=== PATIENT | male | born 1950 | race Caucasian/White ===

== ENCOUNTER 2018-06-24 12:13 | Inpatient (IN) ==
[2018-06-24] MEDS ORDERED: TYLENOL PO PRN (13:16)
[2018-06-24] MEDS ORDERED: DESYREL PO PRN (13:16)
[2018-06-24] MEDS ORDERED: PATIENT'S OWN MED PO SCH (13:16)
[2018-06-24] MEDS ORDERED: PATIENT'S OWN MED IV SCH (13:16)
[2018-06-24] MEDS ORDERED: SOLU-MEDROL IV ONE (13:16)
[2018-06-24 14:13] LABS: BASO# 0.01 X1000 (0.0-0.2); BASO% 0.3 % (0.0-0.8); EOS# 0.06 X1000 (0.0-0.7); EOS% 1.9 % (0.0-10.0); HEMATOCRIT 42.8 % (42.0-52.0); HEMOGLOBIN 13.8 g/dL (14.0-18.0); IMM GRAN# 0.03 X1000 (0.0-0.04); IMM GRAN% 0.9 % (0.0-0.5); LYMPH# 0.59 X1000 (1.2-3.4); LYMPH% 18.3 % (20.5-51.1); MCH 29.6 PG (27-31); MCHC 32.2 g/dL (33-37); MCV 91.8 FL (81-99); MONO# 0.18 X1000 (0.11-0.59); MONO% 5.6 % (1.7-9.3); MPV 12.4 FL (7.4-10.4); NEUT# 2.35 X1000 (1.4-6.5); PLT 111 X1000 (130-400); RBC 4.66 XMIL (4.7-6.1); RDW 16.5 % (11.5-14.5); WBC 3.22 X1000 (4.8-10.8)
[2018-06-24 14:22] LABS: ALB/GLOB RATIO 1.2; ALBUMIN 3.6 g/dL (3.5-5.0); CALCIUM 9.2 mg/dL (8.8-10.2); CREATININE 1.8 mg/dL (0.7-1.2); POTASSIUM 3.8 mmol/L (3.5-5.1); TOTAL BILIRUBIN 0.52 mg/dL (0.20-1.00); TOTAL PROTEIN 6.6 g/dL (6.3-8.3)
[2018-06-24] MEDS: ZOSYN 3.375 GM in NS 50 ML IV SCH ×2 (14:54→22:10)
[2018-06-24 14:56] LABS: BANDS 8 % (0-1); EOS 1 % (1-10); LYMPHS 25 % (21-51); MONO 7 % (1-9); SEGS 59 % (42-75)
[2018-06-24] MEDS: DUONEB (A & A) INH SCH ×3 (15:59→23:50)
[2018-06-24 16:08] LABS: ALLEN TEST YES; BLOOD TYPE ARTERIAL; HCO3-(ACT) 26.3 mmoll (20.0-26.0); METHB 0.9 % (0.0-1.5); O2HB 92.5 % (95.0-99.0); PCO2(98.6) 36 mmHg (35-45); PO2(98.6) 65 mmHg (60-100); SAMPLE BLOOD; SAO2 95.1 % (95.0-100.0); THB 15.4 g/dL (11.5-17.4); pH(98.6) 7.46 (7.35-7.45)
[2018-06-24 16:16] LABS: MODALITY CANNULA
[2018-06-24] MEDS: DOXYCYCLINE 100 MG in NS 250 ML IV SCH (17:12)
--- NOTE | 2018-06-24 18:27 | Diag Imaging Result Doc PS360 ---
EXAM: CHEST-2 VIEWS HISTORY: shortness of breath TECHNIQUE: Chest two views COMPARISON: 02/27/2018 FINDINGS: The lungs are well expanded. The heart is not enlarged. The vessels are not distended. There are no infiltrates in the lower left lung. No pleural effusions. IMPRESSION: Left sided pneumonia. Electronically signed by Brent Goff 06/24/2018 6:25 PM
[2018-06-24] MEDS: HUMALOG SUBQ SCH (22:04)
[2018-06-24] MEDS: SOLU-MEDROL IV SCH (22:08)
[2018-06-24] MEDS: LOFIBRA PO SCH (22:08)
[2018-06-24] MEDS: CRESTOR PO SCH (22:08)
[2018-06-24] MEDS: COREG PO SCH (22:09)
[2018-06-24] MEDS: KLOR-CON PO SCH (22:09)
--- NOTE | 2018-06-25 03:17 | HISTORY AND PHYSICAL ---
PRIMARY CARE PHYSICIAN: Dr. Ike Lucia. CHIEF COMPLAINT: Shortness of breath. HISTORY OF PRESENT ILLNESS: A 67-year-old, white male with a complicated past medical history who presents for evaluation of above-mentioned symptoms. Current history of present illness began on Friday. At that time, the patient developed mild upper respiratory symptoms with nasal drainage. On Friday, he awoke feeling reasonably well and went for his weekly Velcade injection per Dr. Allred. After the Velcade injection, he developed a low-grade fever of 100.8. Cough and shortness of breath increased considerably over the course of the afternoon. The patient contacted the on-call oncologist. He was prescribed ciprofloxacin therapy. Yesterday, the patient states he had tremendous fatigue and was forced to stay in the bed a vast majority of the day. He noted increasing shortness of breath and cough productive of a purulent sputum. He was able to use his CPAP with improvement in his shortness of breath. This morning, his condition progressed further. He contacted my office and the patient was seen in the clinic. Upon arrival, the patient was noted to be ill-appearing with tachypnea. His oxygen saturation at rest was 90%. The patient will be admitted to the hospital for full evaluation and management of presumed pneumonia in the setting of an immunocompromised patient. Of note, the patient has had intermittent wheezing associated with his shortness of breath. He has had multiple sick contacts over the holidays. He is currently being treated with chemotherapeutic intervention for his multiple myeloma. He has developed a recent history of adrenal insufficiency associated with decreasing dexamethasone for his treatment of multiple myeloma. PAST MEDICAL HISTORY: 1. Abnormal electrocardiogram with RSR prime. 2. Abnormal skin examination with multiple actinic keratoses. 3. Chronic anemia. 4. Atrial fibrillation. 5. Benign prostatic hypertrophy. 6. Diabetes. 7. Reflux disease. 8. Hypertension. 9. Hypertriglyceridemia. 10. Hyperlipidemia. 11. Coronary artery disease. 12. Low HDL. 13. Multiple myeloma. 14. Obstructive sleep apnea. 15. Overweight. 16. Rheumatoid arthritis/Still's disease. CURRENT MEDICATIONS: 1. Amiodarone 200 mg as needed for palpitations. 2. Amlodipine 5 mg daily. 3. Aspirin 81 mg daily. 4. Carvedilol 12.5 mg twice daily. 5. Claritin 10 mg daily. 6. Crestor 40 mg at bedtime. 7. Dexamethasone 2 mg in the morning every other day. 8. Fenofibrate 160 mg at bedtime. 9. Lasix 40 mg daily. 10. Onglyza 5 mg daily. 11. Potassium chloride 10 mEq twice daily. 12. Revlimid 10 mg at bedtime. 13. Trazodone 50 mg 1 to 2 tablets at bedtime as needed. 14. Velcade weekly for 3 weeks, followed by 1 off week. ALLERGIES: The patient answered no known drug allergies. SOCIAL HISTORY: Patient previously smoked 1 pack per day for 10 years. He stopped cigarettes in 1978. He started oral tobacco in 1984 but stopped in 2008. He currently is tobacco free. He denies alcohol or illicit drug use. 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 He enjoys fishing. He exercises 3 times per week. FAMILY HISTORY: The patient's father passed at age 69 secondary to complications of ischemic heart disease and prostate cancer. The patient's mother passed at age 84 with complications of end-stage renal disease. She had a history of diabetes and coronary artery disease. REVIEW OF SYSTEMS: A 12 point review of systems was performed. Pertinent positives and negatives are noted in the history present illness. PHYSICAL EXAMINATION: VITAL SIGNS: Temperature 98.6 degrees, heart rate 42, respirations of 28, blood pressure is 145/60. GENERAL: Ill-appearing. Mild respiratory compromise with tachypnea. HEENT: Normocephalic, atraumatic. Pupils equal, round, and reactive to light. Extraocular muscles intact. Sclerae anicteric. [place] conjunctivae. Oral and nasopharynx clear without exudate. NECK: Supple. No lymphadenopathy. No thyromegaly. No bruits auscultated. CARDIOVASCULAR: Regular rate and rhythm. No significant murmurs, rubs, or gallops. PULMONARY: Crackles at the left base. Occasional wheeze. ABDOMEN: Soft, nontender, nondistended. Positive bowel sounds. EXTREMITIES: Moves all extremities well. No significant clubbing, cyanosis, or edema. NEUROLOGIC EXAMINATION: Cranial nerves 2 through 12 grossly intact. Motor and sensory grossly intact. PSYCHOLOGIC: Examination is appropriate. LABORATORY DATA: White blood cell count 3.22, hemoglobin 13.8, hematocrit 42.8, platelet count is 111,000. Sodium 136, potassium 3.8, chloride 96, bicarb 28, BUN 21, creatinine 1.8, glucose 140, calcium 9.2. Total bilirubin 0.52, total protein 6.6, albumin 3.6, alkaline phosphatase 30, AST 22, ALT 21. PH 7.46, pCO2 36, PO2 65 (on 2 L nasal cannula), bicarbonate 26.3. Chest x-ray is pending at the time of dictation. ASSESSMENT AND PLAN: A 67-year-old, white male with a complicated past medical history who presents for evaluation of progressive shortness of breath with a cough productive of a purulent sputum. The patient is tachypneic with left basilar crackles per examination. Oxygen saturation is borderline. At this point, working diagnosis is that of a pneumonia in an immunocompromised host. The patient will be admitted to the hospital for full evaluation and management of this condition. 1. Admit to general medicine. 2. Presumed pneumonia, community-acquired - the patient's clinical presentation is most consistent. Chest x-ray is pending. We will check sputum cultures and blood cultures. We will initiate bronchodilators and antibiotics including Zosyn and doxycycline therapy. We will initiate oxygen per protocol. Should patient not demonstrate significant improvement, we will have a low threshold for adding methicillin-resistant Staphylococcus aureus coverage. 3. Hypoxia - this is likely secondary to his underlying pneumonia. We will treat patient with oxygen per protocol. 4. Intermittent bronchospasm and recent history of adrenal insufficiency/chronic steroid use - we will initiate Solu-Medrol at stress doses. We will start routine bronchodilators. 5. Multiple myeloma - we will consult Dr. Allred. For now, we will continue his home regimen. 6. Rheumatoid arthritis/Still's disease - we will continue patient's home regimen. Symptoms are reasonably controlled. 7. History of coronary artery disease - we will remain aware. We will continue his optimized medical management. 8. Hypertension - we will continue patient's home medications. 9. Hyperlipidemia - we will continue patient on rosuvastatin. 10. Fluid, electrolytes, nutrition - we will monitor electrolytes. Saline lock intravenous line. Diabetic diet. 11. Prophylaxis - the patient will be placed on sequential compression devices. cc: Ike Lucia MD
[2018-06-25] MEDS: ZOSYN 3.375 GM in NS 50 ML IV SCH ×4 (04:21→21:49)
[2018-06-25] MEDS: DOXYCYCLINE 100 MG in NS 250 ML IV SCH ×2 (06:07→17:56)
[2018-06-25] MEDS: SOLU-MEDROL IV SCH ×2 (06:08→14:20)
[2018-06-25] MEDS: HUMALOG SUBQ SCH ×4 (06:08→21:51)
[2018-06-25] MEDS: DUONEB (A & A) INH SCH ×6 (06:26→23:04)
[2018-06-25] MEDS: CLARITIN PO SCH (09:20)
[2018-06-25] MEDS: KLOR-CON PO SCH ×2 (09:21→21:50)
[2018-06-25] MEDS: NORVASC PO SCH (09:21)
[2018-06-25] MEDS: ASPIRIN EC PO SCH (09:21)
[2018-06-25] MEDS: COREG PO SCH ×2 (09:21→21:51)
[2018-06-25] MEDS: LASIX PO SCH (09:21)
[2018-06-25] MEDS: LOFIBRA PO SCH (21:50)
[2018-06-25] MEDS: CRESTOR PO SCH (21:50)
[2018-06-26] MEDS: ZOSYN 3.375 GM in NS 50 ML IV SCH ×5 (02:22→20:58)
--- NOTE | 2018-06-26 02:58 | PROGRESS NOTE ---
DATE: 06/25/2018 SUBJECTIVE: The patient was admitted yesterday with significant shortness of breath. Full evaluation was pursued. Chest x-ray confirmed a left lower lung field pneumonia. The patient was started on broad-spectrum antibiotics. In the setting of wheezing, steroids and bronchodilators were initiated. This morning, the patient stated he felt better. He continued to have considerable fatigue, but was much improved from admission. Throughout the day, the patient did reasonably well. This evening, the patient states he continues to improve. He is tolerating medical intervention thus far. He denies fevers, chills, nausea, vomiting, or chest discomfort. Shortness of breath is improving. OBJECTIVE: Vital Signs: T-max 98.1 degrees, heart rate 60 to 76, respirations 18 to 20, blood pressure 116 to 132 over 62 to 68. General: No acute distress. Cardiovascular: Regular rate and rhythm. No significant murmurs, rubs, or gallops. Pulmonary: Crackles at the left base. Improved air movement. Abdomen: Soft, nontender, nondistended. Positive bowel sounds. Extremities: Moves all extremities well. No significant clubbing or cyanosis. Trace lower extremity edema bilaterally. Dermatologic: Reveals no evidence of rash. LABORATORY DATA: None. ASSESSMENT AND PLAN: 1. Pneumonia, presumed community-acquired, but in an immunocompromised host. We will continue to follow patient's sputum and blood cultures. We will continue current antibiotic regimen, including doxycycline and Zosyn therapy. We will encourage incentive spirometry and aspiration precautions. Clinically, the patient is achieving improvement. 2. Hypoxia. We will continue oxygen per protocol. This too is improving. 3. Intermittent bronchospasm and a recent history of adrenal insufficiency secondary to chronic steroid use. We will begin a steroid taper, as his bronchospasm is improving. We will continue bronchodilators. 4. Multiple myeloma. Dr. Allred was consulted. We will continue his home regimen for now. 5. Rheumatoid arthritis/Still's disease. We will continue his home regimen. Symptoms are controlled. 6. History of coronary artery disease. We will continue optimum medical management. 7. Hypertension. Blood pressure is controlled on his current regimen. 8. Hyperlipidemia. We will continue rosuvastatin therapy. 9. Prophylaxis. We will continue sequential compression devices. We will discuss starting enoxaparin therapy in the morning with Dr. Allred. 10. Disposition. At this point, the patient continues to require intermediate care in a hospital setting. We will plan discharge home once appropriate. cc: Ike Lucia MD
[2018-06-26] MEDS: DUONEB (A & A) INH SCH ×6 (03:30→23:35)
[2018-06-26] MEDS: SOLU-MEDROL IV SCH ×2 (04:38→17:03)
[2018-06-26] MEDS: HUMALOG SUBQ SCH ×5 (05:40→20:59)
[2018-06-26] MEDS: DOXYCYCLINE 100 MG in NS 250 ML IV SCH (05:40)
[2018-06-26] MEDS: LASIX PO SCH (08:11)
[2018-06-26] MEDS: COREG PO SCH ×3 (08:11→20:58)
[2018-06-26] MEDS: ASPIRIN EC PO SCH (08:12)
[2018-06-26] MEDS: NORVASC PO SCH (08:12)
[2018-06-26] MEDS: CLARITIN PO SCH (08:12)
[2018-06-26] MEDS: KLOR-CON PO SCH ×3 (08:13→21:01)
--- NOTE | 2018-06-26 09:05 | Diag Imaging Result Doc PS360 ---
EXAM: CHEST-2 VIEWS HISTORY: Pneumonia TECHNIQUE: Two views COMPARISON: 06/24/2018 FINDINGS: The lungs are well expanded. The heart is not enlarged. The vessels are not distended. There are persistent infiltrates in the left lung base although they are less dense than on the prior study. No pleural effusions. IMPRESSION: Mild interval improvement Electronically signed by Brent Goff 06/26/2018 9:03 AM
--- NOTE | 2018-06-26 09:40 | HEMO/ONC CONSULTATION ---
DATE: 06/25/2018 ADMITTING PHYSICIAN: Dr. Ike Lucia. REQUESTING PHYSICIAN: Dr. Ike Lucia. We appreciate this consult. CHIEF COMPLAINT: History of multiple myeloma. HISTORY OF PRESENT ILLNESS: Mr. Rod is a very pleasant, 67-year-old male well known to Dr. Allred with a history of multiple myeloma. He is currently on Velcade and Revlimid, and has recently been shown to have no monoclonal spike on SPEP. The patient began to have mild upper respiratory symptoms to include nasal drainage. The patient called [facility] and was placed on ciprofloxacin by Dr. Espinal. Symptoms progressed and the patient experienced a low-grade fever of 100.8. The patient began to have worsening cough and shortness of breath, and presented to [facility] Emergency Department. Chest x-ray was obtained which revealed left pneumonia, and the patient was admitted for the same. We are consulted as the patient is known to us. PAST MEDICAL HISTORY: 1. Chronic anemia. 2. Multiple myeloma. 3. Atrial fibrillation. 4. Benign prostatic hypertrophy. 5. Diabetes mellitus type 2. 6. Gastroesophageal reflux disease. 7. Hypertension. 8. Hypertriglyceridemia. 9. Coronary artery disease. 10. Obstructive sleep apnea. 11. Rheumatoid arthritis/Still's disease. FAMILY HISTORY: Negative for any malignancies or hematologic disorders. SOCIAL HISTORY: The patient is a former smoker. He does not use alcohol or illicit drugs. MEDICATIONS ON ADMISSION: 1. Amiodarone. 2. Amlodipine. 3. Aspirin 81 mg. 4. Carvedilol. 5. Claritin. 6. Crestor. 7. Dexamethasone. 8. Fenofibrate. 9. Lasix. 10. Onglyza. 11. Potassium chloride. 12. Revlimid. 13. Trazodone. 14. Velcade. ALLERGIES: The patient is allergic to Bacitracin ointment, [place] 15, and Gold. REVIEW OF SYSTEMS: Complete review of systems is negative, except for as mentioned in HPI. PHYSICAL EXAMINATION: General: Mr. Rod is a pleasant 67-year-old male, lying supine in bed in no immediate distress. Vital Signs: Temperature 97.9 degrees, blood pressure 117/59, heart rate 73, respirations 18, O2 saturation 93% on nasal cannula O2. HEENT: Normocephalic, atraumatic. Mucous membranes pink and moist. Sclerae anicteric. Extraocular movements intact. Neck: Supple. Lungs: Clear to auscultation bilaterally. Chest expansion equal bilaterally. CV: S1, S2 is heard. No murmurs, rubs or gallops. Abdomen: Nondistended. Extremities: With no clubbing or cyanosis. He does have trace bilateral lower extremity edema. Dermatologic: No rashes, bruises or lesions. Neurologic: The patient is awake, alert and oriented x3. Has no focal motor deficits. ASSESSMENT AND PLAN: 1. Multiple myeloma currently on Velcade and Revlimid. Last SPEP shows no evidence of monoclonal spike. The patient will continue on Revlimid as inpatient. We will resume Velcade on discharge when the patient's acute illness has improved. 2. Community-acquired pneumonia. The patient is currently on Zosyn and doxycycline. 3. Hypoxia likely secondary to #2. The patient is currently on oxygen per nasal cannula. 4. Rheumatoid arthritis, well controlled. 5. Coronary artery disease known. 6. Hypertension, well controlled at this time. We will follow along with you and make further recommendations pending outcomes. The above reflects the history, exam, assessment and plan of Dr. Espinal. Dictated by ANGELINA Sierra for Martha Espinal MD cc: ANGELINA Sierra MD Scott A. Matthews, MD I have seen and examined the patient and the above note reflects my history, physical , and assessment and plan. Martha BUCHANAN
[2018-06-26] MEDS: DOXYCYCLINE PO SCH ×3 (12:32→21:01)
[2018-06-26] MEDS: LOVENOX SUBQ SCH (12:33)
--- NOTE | 2018-06-26 14:24 | HEMO/ONC PROGRESS NOTE ---
DATE: 06/26/2018 CHIEF COMPLAINT: "I'm feeling better." OBJECTIVE: Vital signs: Temperature 97.9 degrees, blood pressure 141/59, heart rate 80, respirations 16, O2 saturation 95% on room air. HEENT: Normocephalic, atraumatic. Mucous membranes pink and moist. Sclerae anicteric. Extraocular movements intact. Neck: Supple. Lungs: Clear to auscultation bilaterally. Chest expansion equal bilaterally. Cardiovascular: S1 and S2 heard. No murmurs, rubs, or gallops. ABDOMEN: Nondistended. EXTREMITIES: No clubbing or cyanosis. He does have 1+ bilateral lower extremity edema.Dermatologic: No rashes, bruises, or lesions. Neurological: The patient is awake, alert, and oriented x3. He has no focal deficits. LABORATORY DATA: Hemoglobin 13.8, hematocrit 42.8, white blood cell count 3.22 , platelets 111,000. Sodium 136, potassium 3.8, chloride 96, CO2 28, BUN 21, creatinine 1.8 , and glucose 140. ASSESSMENT: 1. Multiple myeloma, on Velcade and Revlimid. Last SPEP showed no monoclonal spike. The patient continues on Revlimid as an inpatient. Velcade is on hold until the patient is discharged. 2. Community acquired pneumonia. The patient is currently on antibiotics. Chest x-ray reveals mild interval improvement. 3. Hypoxia, likely secondary to number 2, currently off of oxygen with oxygen saturation 96% on room air. We will follow along with you and make further recommendations pending outcomes. We will sign off until Friday. The above reflects the history, exam, assessment, and plan of Dr. Espinal. Dictated by ANGELINA Sierra for Martha Espinal MD cc: ANGELINA Sierra MD Scott A. Matthews, MD I have seen and examined the patient and the above note reflects my history, physical exam and assessment and plan. Martha BUCHANAN
[2018-06-26] MEDS: CRESTOR PO SCH ×2 (19:56→21:01)
[2018-06-26] MEDS: LOFIBRA PO SCH (20:07)
--- NOTE | 2018-06-27 02:09 | PROGRESS NOTE ---
DATE: 06/26/2018 SUBJECTIVE: This morning, the patient stated he continue to demonstrate improvement. He had slept well overnight. Over the course of the day, the patient states he showed further improvement. He was able to ambulate in the serna. Chest x-ray suggested improvement, but not resolution of his underlying pneumonia. He has had no further episodes of fevers, chills, nausea, vomiting, or chest discomfort. Oxygenation remains acceptable. OBJECTIVE: Vital Signs: T-max at 98.7 degrees, heart rate, 57 to 80, respirations 16, blood pressure 117 to 141 over 59 to 74. General: Well-nourished, well-developed, in no acute distress. Cardiovascular: Regular rate and rhythm. No significant murmurs, rubs, or gallops. Pulmonary: Mild crackles at the left base. Adequate air movement. Abdomen: Soft, nontender, nondistended. Positive bowel sounds. Extremities: Moves all extremities well. No significant clubbing, cyanosis, or edema. Dermatologic: Evaluation reveals no evidence of rash. LABORATORY DATA: None. Chest x-ray suggested mild interval improvement. ASSESSMENT AND PLAN: 1. Pneumonia, presumed community-acquired, in an immunocompromised host. We will continue broad- spectrum antibiotics with doxycycline and Zosyn therapy. We will continue treatment of bronchospasm as described below. Sputum culture thus far suggests normal lisa. 2. Hypoxia. The patient has achieved improvement with aggressive management. We will continue oxygen per protocol. 3. Intermittent bronchospasm. We will continue steroid intervention and bronchodilators. Symptoms are controlled. 4. Multiple myeloma. We will continue his home regimen. 5. Rheumatoid arthritis/Still's disease. Symptoms are controlled with his home regimen. 6. History of coronary artery disease. We will continue optimize medical management. He is asymptomatic. 7. Hypertension. Blood pressure is controlled on his current regimen. 8. Hyperlipidemia. We will continue patient on rosuvastatin therapy. 9. Disposition. At this point, the patient continues to require halfway care in a hospital setting. We will go ahead and discharge home once appropriate. cc: Ike Lucia MD
[2018-06-27] MEDS: ZOSYN 3.375 GM in NS 50 ML IV SCH ×2 (03:21→09:08)
[2018-06-27] MEDS: SOLU-MEDROL IV SCH (03:21)
[2018-06-27] MEDS: DUONEB (A & A) INH SCH ×3 (03:35→11:00)
[2018-06-27] MEDS: HUMALOG SUBQ SCH ×2 (06:14→11:38)
[2018-06-27 07:25] VITALS: BP 94/77
[2018-06-27] MEDS: COREG PO SCH (09:08)
[2018-06-27] MEDS: KLOR-CON PO SCH (09:08)
[2018-06-27] MEDS: CLARITIN PO SCH (09:08)
[2018-06-27] MEDS: NORVASC PO SCH (09:08)
[2018-06-27] MEDS: LASIX PO SCH (09:08)
[2018-06-27] MEDS: LOVENOX SUBQ SCH (09:08)
[2018-06-27] MEDS: ASPIRIN EC PO SCH (09:08)
[2018-06-27] MEDS: DOXYCYCLINE PO SCH (09:08)
--- NOTE | 2018-06-27 20:04 | DISCHARGE SUMMARY ---
ADMISSION DATE: 06/24/2018 DISCHARGE DATE: 06/27/2018 ADMISSION DIAGNOSIS: Shortness of breath. DISCHARGE DIAGNOSES: 1. Pneumonia, presumed community-acquired in an immunocompromised host. 2. Hypoxia, improved. 3. Intermittent bronchospasm, improved. 4. Multiple myeloma, present on arrival. 5. Rheumatoid arthritis/Still's disease present on arrival. 6. Coronary artery disease, present on arrival. 7. Hypertension, present on arrival. 8. Hyperlipidemia, present on arrival. CONSULTATIONS: Dr. Espinal with Hematology and Oncology was consulted for further evaluation and management of multiple myeloma. PROCEDURES: 1. A chest x-ray was performed on 06/24/2018 which revealed a left-sided pneumonia. 2. Chest x-ray was performed on 06/26/2018 which revealed mild interval improvement. HISTORY AND PHYSICAL EXAMINATION: See admit note. PHYSICAL EXAMINATION PRIOR TO DISCHARGE: Temperature 97.8 degrees, heart rate 70, respirations 20, blood pressure 94/77. General: Well nourished, well developed, no acute distress. Cardiovascular: Regular rate and rhythm. No significant murmurs, rubs, or gallops. Pulmonary: Mild crackles at the left base. Adequate air movement. Abdomen: Soft, nontender, nondistended. Positive bowel sounds. Extremities: Moves all extremities well. No significant clubbing, cyanosis, or edema. Dermatologic: Evaluation reveals no evidence of rash. LABORATORY DATA: Prior to discharge None. HOSPITAL COURSE: The patient was admitted as per history and physical examination. Hospital course per condition. 1. Pneumonia, presumed community-acquired in an immunocompromised host-upon admission, patient was noted to have profound shortness of breath with associated hypoxia. Examination and chest x-ray were consistent with a left-sided pneumonia. In the setting of his immunocompromised state, patient was treated aggressively with Zosyn and doxycycline therapy. Bronchospasm was treated as described below. With aggressive intervention, patient's condition quickly demonstrated improvement. At time of discharge, patient was afebrile. Energy level was improving. The patient will be discharged home with doxycycline and Augmentin therapy for an additional 10 days. We will treat patient's bronchospasm as noted below. 2. Hypoxia-upon admission, patient was noted to be hypoxic. This was likely a consequence of his underlying pneumonia and bronchospasm. Patient was treated aggressively with rapid improvement. At time of discharge, oxygen saturations were acceptable on room air. We will continue to follow as an outpatient. 3. Intermittent bronchospasm-this likely was a consequence of his underlying pneumonia. Patient was treated with IV Solu-Medrol and bronchodilators while hospitalized. We will transition patient back to dexamethasone at discharge. A prescription for a nebulizer machine and DuoNeb was provided for home. The patient's dexamethasone will be resumed tomorrow at 2 mg daily for the next 5 days then transition back to his home dosage of 2 mg every other day. 4. Multiple myeloma-the patient is currently being followed routinely by Dr. Allred. His partner, Dr. Espinal was consulted while hospitalized. For now, we will continue his current medical regimen. At present time, he is being evaluated for a bone marrow transplantation. 5. Rheumatoid arthritis/Still's disease-patient has longstanding disease. Symptoms remain controlled on his home regimen. 6. Coronary artery disease-patient has longstanding disease. He was maintained on his optimum home medical management. 7. Hypertension-blood pressure remains reasonably controlled with his home regimen. 8. Hyperlipidemia-the patient was continued on rosuvastatin therapy. 9. Hyperglycemia-the patient's blood sugars were noted to be elevated while hospitalized, likely a consequence of his steroid use. He was covered with sliding scale insulin. I have asked patient to follow blood sugars as an outpatient. We will need to consider whether adding sliding-scale insulin is appropriate as an outpatient. DISCHARGE CONDITION: Good. DISPOSITION: Discharge to home. MEDICATIONS: 1. DuoNeb every 4 hours while awake for the next 2 weeks then as needed. 2. Augmentin 875/125 twice daily for 10 days. 3. Doxycycline 100 mg twice daily for 10 days. 4. Trazodone 50 mg at bedtime as needed. 5. Dexamethasone 2 mg daily for 5 days then 2 mg every other day. 6. Mucinex DM twice daily as needed. 7. Aspirin 81 mg daily. 8. Rosuvastatin 40 mg at bedtime. 9. Carvedilol 12.5 mg twice a day. 10. Fenofibrate 160 mg at bedtime. 11. Loratadine 10 mg daily. 12. Amlodipine 5 mg daily. 13. Velcade as directed. 14. Lasix 40 mg daily. 15. Revlimid 10 mg at bedtime. 16. Potassium chloride 1 tablet twice daily. 17. Acetaminophen 650 mg every 4 hours as needed. FOLLOWUP: The patient is to follow up with me next week. cc: Ike Lucia MD
== END 2018-06-27 11:50 | disposition home or self-care (01) | DRG 194 ==
LOC: DIRADM 12:13 → 4N 12:21
PROVIDERS: ADMIT Internal Medicine; ATTEND Internal Medicine
CPT/HCPCS: 71020; 71046; 80053; 82805; 82948; 85025; 87040; 87070; 87205; 94640; 94761; 94799; A9270; J1650; J1815; J2543; J2920; J2930; J7050; XXXXX